=== PATIENT | male | born 2005 | race Caucasian/White ===

== ENCOUNTER 2025-08-08 19:34 | Observation (INO) | payer OTHER, SELFPAY ==
[2025-08-08 14:38] VITALS: BP 141/74
[2025-08-08 15:04] VITALS: BP 145/84
[2025-08-08 15:34] VITALS: BMI 29.1
--- NOTE | 2025-08-08 15:34 | ED.GENMED ---
History of Present Illness
<TRIPP Willson Jr. Last Filed: 08/08/25 20:07>
General
Chief Complaint: Post Operative Problem(s)
Source: patient and family
Exam Limitations: none
Time Seen by Provider: 08/08/25 15:07
Nursing documentation reviewed up to this point in time: agreed with
History of Present Illness
History of Present Illness:
20-year-old male past medical history of recurrent pilonidal cyst recent flap fistula surgery 3 days in [facility]. Initially was doing well has been taking Percocet for pain earlier today over the past 4 hours or so worsening abdominal
pain nausea and vomiting. Did have a bowel movement yesterday. Denies any chest pain shortness of breath or fevers.
Review of Systems
<TRIPP Willson Jr. Last Filed: 08/08/25 20:07>
Review of Systems
Allergies reviewed?: Yes
All Other Systems: ROS reviewed and negative except as documented in HPI and ROS
Phy Exam
<TRIPP Willson Jr. Last Filed: 08/08/25 20:07>
Physical Exam
Physical Exam:
GENERAL: Alert , in no apparent distress
EYE: pupils equal and reactive
NECK: Supple, no significant adenopathy.
ENT: o/p clr, mmm.
CARDIAC: Regular rate and rhythm .
LUNGS: Clear breath sounds bilaterally, no acute respiratory distress, no wheezes/rales/rhonchi
ABDOMEN: Nonperitoneal diffuse abdominal pain to palpation
NEUROLOGICAL: Alert and oriented, no focal neuro deficits
SKIN: Warm and dry, skin intact.
MUSCULOSKELETAL: No edema, well perfused.
PSYCH: Normal and appropriate interaction.
Course
<TRIPP Willson Jr. Last Filed: 08/08/25 20:07>
Orders/Labs/Results
Orders:
Orders
08/08/25 15:16
CT Abd/Pel (IV only)-DH only Urgent
Comment:
Reason For Exam: diffuse abd pain, flap fistula surgery 3 days ago
0.9% Sodium Chloride 1000 ml [Nss] 1,000 ml IV BOLUS
HYDROmorphone [Dilaudid] 0.5 mg IV NOW STA
Ondansetron Injectable [Zofran] 4 mg IV NOW STA
08/08/25 15:51
Complete Blood Count/With Diff Urgent
Comprehensive Metabolic Panel Urgent
Lactic Acid Urgent
Lipase Urgent
08/08/25 16:57
HYDROmorphone [Dilaudid] 0.5 mg IV NOW STA
08/08/25 17:01
Urinalysis Reflex To Culture Urgent
Date Specimen was Collected: 08/08/25
Time Specimen was Collected: 16:45
08/08/25 18:06
HYDROmorphone [Dilaudid] 0.5 mg IV NOW STA
Piperacillin/Tazo 4.5 Gram [Zosyn] 4.5 gram in 100 ml IV NOW
08/08/25 19:11
Admit/Transfer Patient As Directed
Co-Sign Provider:
Level of Care: Observation services
Assign to:: Medical/Surgical
Physician / Group: dr urban
Diagnosis: uncomplicated appendicitis
08/08/25 19:12
Code Status As Directed
Resuscitation Status: Full Code
PRN Pain Medication Management As Directed
May give lesser potent ordered pain med per pt: Yes
preference::
Protocol:: Medication orders for pain may be administered in a
manner that supports deferring to patient preference
when the pt is:
- Requesting an ordered lesser potent pain medication.
Least to most potent pain medications are defined
as: acetaminophen < NSAID < tramadol < opioids
(morphine, oxycodone, hydromorphone).
- Requesting a lesser dose of the same medication IF
ORDERED.
- Requesting a less intrusive route of administration
if both routes are prescribed by the provider (PO <
IV).
Abnormal Lab Results
08/08/25 08/08/25
15:51 17:01
WBC 12.9 H 10^3/uL
(4.8-10.8)
Absolute Neuts (auto) 11.7 H 10^3/uL
(1.4-6.5)
Absolute Lymphs (auto) 0.5 L 10^3/uL
(1.2-3.4)
Neutrophils % 90.9 H %
(42.2-75.2)
Lymphocytes % 3.7 L %
(20.5-51.1)
Glucose 125 H mg/dl
(70-99)
Total Bilirubin 1.5 H mg/dl
(0.2-1.3)
Albumin 5.1 H g/dl
(3.5-5.0)
Urine Ketones 3+ A
(Negative)
08/08/25 15:51
08/08/25 15:51
Vital Signs
Initial and Last Documented VS:
Initial Vital Signs
Temp Pulse Resp BP Pulse Ox
98.4 F 92 20 141/74 100
08/08/25 14:38 08/08/25 14:38 08/08/25 14:38 08/08/25 14:38 08/08/25 14:38
Last Documented Vital Signs
Temp Pulse Resp BP Pulse Ox
100.0 F 98 16 122/57 99
08/08/25 19:33 08/08/25 19:33 08/08/25 19:33 08/08/25 19:33 08/08/25 19:33
<Oli Lassiter DO - Last Filed: 08/08/25 17:38>
Orders/Labs/Results
Orders:
Orders
08/08/25 15:16
CT Abd/Pel (IV only)-[facility] only Urgent
Comment:
Reason For Exam: diffuse abd pain, flap fistula surgery 3 days ago
0.9% Sodium Chloride 1000 ml [Nss] 1,000 ml IV BOLUS
HYDROmorphone [Dilaudid] 0.5 mg IV NOW STA
Ondansetron Injectable [Zofran] 4 mg IV NOW STA
08/08/25 15:51
Complete Blood Count/With Diff Urgent
Comprehensive Metabolic Panel Urgent
Lactic Acid Urgent
Lipase Urgent
08/08/25 16:57
HYDROmorphone [Dilaudid] 0.5 mg IV NOW STA
08/08/25 17:01
Urinalysis Reflex To Culture Urgent
Date Specimen was Collected: 08/08/25
Time Specimen was Collected: 16:45
08/08/25 18:06
HYDROmorphone [Dilaudid] 0.5 mg IV NOW STA
Piperacillin/Tazo 4.5 Gram [Zosyn] 4.5 gram in 100 ml IV NOW
08/08/25 19:11
Admit/Transfer Patient As Directed
Co-Sign Provider:
Level of Care: Observation services
Assign to:: Medical/Surgical
Physician / Group: dr urban
Diagnosis: uncomplicated appendicitis
08/08/25 19:12
Code Status As Directed
Resuscitation Status: Full Code
PRN Pain Medication Management As Directed
May give lesser potent ordered pain med per pt: Yes
preference::
Protocol:: Medication orders for pain may be administered in a
manner that supports deferring to patient preference
when the pt is:
- Requesting an ordered lesser potent pain medication.
Least to most potent pain medications are defined
as: acetaminophen < NSAID < tramadol < opioids
(morphine, oxycodone, hydromorphone).
- Requesting a lesser dose of the same medication IF
ORDERED.
- Requesting a less intrusive route of administration
if both routes are prescribed by the provider (PO <
IV).
Abnormal Lab Results
08/08/25 08/08/25
15:51 17:01
WBC 12.9 H 10^3/uL
(4.8-10.8)
Absolute Neuts (auto) 11.7 H 10^3/uL
(1.4-6.5)
Absolute Lymphs (auto) 0.5 L 10^3/uL
(1.2-3.4)
Neutrophils % 90.9 H %
(42.2-75.2)
Lymphocytes % 3.7 L %
(20.5-51.1)
Glucose 125 H mg/dl
(70-99)
Total Bilirubin 1.5 H mg/dl
(0.2-1.3)
Albumin 5.1 H g/dl
(3.5-5.0)
Urine Ketones 3+ A
(Negative)
08/08/25 15:51
08/08/25 15:51
Vital Signs
Initial and Last Documented VS:
Initial Vital Signs
Temp Pulse Resp BP Pulse Ox
98.4 F 92 20 141/74 100
08/08/25 14:38 08/08/25 14:38 08/08/25 14:38 08/08/25 14:38 08/08/25 14:38
Last Documented Vital Signs
Temp Pulse Resp BP Pulse Ox
100.0 F 98 16 122/57 99
08/08/25 19:33 08/08/25 19:33 08/08/25 19:33 08/08/25 19:33 08/08/25 19:33
<Edchaitanya Ching Jr., PA-C - Last Filed: 08/08/25 20:07>
MDM/Problems Addressed
MDM/Problems Addressed:
20-year-old male presenting to the emergency department today 3 days after advancement flap fistula procedure due to recurrent pilonidal cyst. This was performed in [facility]. Denies any fevers but has had progressive nausea vomiting
diffuse abdominal pain over the past 4 hours or so. He did contact his surgeon told him to go to the ER.
CT scan was obtained that showed acute appendicitis. Case was discussed with general surgery who will except him to their service. Otherwise stable throughout ER stay.
<Paul Ching Jr., PA-C - Last Filed: 08/08/25 20:07>
*Pulse Oximetry
SaO2: 100
Oxygen Mode of Delivery: Room air
Patient hypoxic: no (98)
*Critical Care Note
Total Time (30-74mins, 75-104mins- exclusive of procedures): Not Applicable
ED Attending Note
<Paul Ching Jr., PA-C - Last Filed: 08/08/25 20:07>
-
Portions of this chart may have been created with voice recognition software.� Occasional wrong word or��sound alike� substitutions may have occurred due to the inherent limitations of voice recognition software.
<Oli Lassiter DO - Last Filed: 08/08/25 17:38>
ED Attending Note
Patient seen and examined by attending physician: Yes
I performed the substantive portion of visit, reviewed & personally made and approve the management plan that is documented in note by myself or DAQUAN.: Yes
I performed a history and physical exam of patient and discussed management with resident, I reviewed resident's note and agree with documented findings and plan of care.: Yes
ED Attending Note:
20-year-old male presents to the ER for evaluation of abdominal pain. Patient gestures to his mid abdomen as area of greatest discomfort. He is recently status post a procedure for treatment of fistula in a different hospital 3 days ago. Vital
signs reviewed, patient is awake, alert, appears uncomfortable but in no acute distress, abdomen is soft with localized pain on palpation at McBurney's, GCS is 15. I discussed with patient and failed member present at bedside CT concerning for
acute appendicitis and treatment of same. Physician tutoring assistant was able to review patient presentation with the surgical team for admission and definitive treatment. Antibiotics ordered.
Discharge Plan
Departure
Patient Disposition: Admit
Date of Disposition: 08/08/25
Time of Disposition: 20:06
Admit to: Med/Surg
Admit to doctor: Sami
Presentation/result/management discussed w/ accepting MD/DO: Surgery
Patient with high blood pressure during this ER visit?: No
Condition: Good
Covid-19: Not Applicable
Discharge Problem:
Acute appendicitis
Interventions
Interventions:
*General Assessment Last Done: 08/08/25 14:38
*Neglect/Abuse Screening Last Done: 08/08/25 14:38
*ED COVID-19 Vaccine History Last Done: 08/08/25 15:35
*ED Influenza Vaccine History Last Done: 08/08/25 15:35
[facility] Fall Risk Assessment Tool Last Done: 08/08/25 15:34
*Risk Screen - Suicide (C-SSRS) Last Done: 08/08/25 14:45
[2025-08-08] MEDS: DILAUDID 0.5 MG IV ×3 (15:44→19:29)
[2025-08-08] MEDS: NSS 1000 IV ×2 (15:45→21:28)
[2025-08-08] MEDS: ZOFRAN 4 MG IV ×2 (15:45→19:39)
[2025-08-08 16:01] LABS: Hematocrit 44.2 % (39.0-52.0); Hemoglobin 15.8 g/dL (13.0-18.0); Mean Corp Hgb Conc. 35.7 g/dL (33.0-37.0); Mean Corpuscular Volume 81.4 fL (80.0-94.0); Nucleated Red Blood Cells % 0 % (-); Platelet Count 165 10^3/uL (130-400); Red Cell Dist. Width 12.8 % (11.5-14.5)
[2025-08-08 16:23] LABS: ALT (SGPT) 26 U/L (0-50); AST (SGOT) 30 U/L (17-59); Albumin 5.1 g/dl (3.5-5.0); Alkaline Phosphatase 62 U/L (38-126); Blood Urea Nitrogen 14 mg/dl (9-20); Calcium 10.1 mg/dl (8.4-10.2); Carbon Dioxide 23 mmol/L (22-30); Chloride 101 mmol/L (98-107); Estimated Creatinine Clearance 125 ml/min; Glucose 125 mg/dl (70-99); Lipase 73 U/L (23-300); Potassium 4.1 mmol/L (3.5-5.1); Sodium 138 mmol/L (135-145); Total Protein 8.1 g/dl (6.3-8.2); eGFR > 60.00
[2025-08-08 17:17] LABS: Urine Character Clear (Clear)
--- NOTE | 2025-08-08 19:15 | EDRN ---
Report received, introduced myself to patient and medicated for pain, hospitalist was just in seeing and working on admission
[2025-08-08] MEDS: ZOSYN 100 IV (19:29)
[2025-08-08 19:33] VITALS: BP 122/57
[2025-08-08 20:45] VITALS: BP 108/62
[2025-08-08 21:14] VITALS: BMI 29.4
--- NOTE | 2025-08-08 21:32 | HPS.HSE ---
Addendum entered and electronically signed by Asim Alegria MD 08/09/25 08:29:
Patient seen and examined independently of admitting SOFTWARE DEVELOPMENT COORDINATOR. Agree with documented history and physical with details noted here.
HPI: 20-year-old male who recently underwent a anorectal advancement flap for perianal fistula 3 days ago. He was recovering expectedly until his began developing abdominal pain yesterday with bloating and distention. He had mild nausea and
subsequent vomiting. Abdominal pain increased in severity and has begun localizing to the right lower quadrant.
Persistent pain and tenderness this a.m.
Past medical history only notable for ADHD and perianal fistula (not pilonidal as mentioned SOFTWARE DEVELOPMENT COORDINATOR HPI)
No past abdominal surgical history
AFVSS; Tmax 100 yesterday evening
NAD AAO x 3 but acutely ill-appearing
ABD: Softly distended with localizing tenderness to right lower quadrant with voluntary guarding
CT imaging personally reviewed as well as radiologist report. Dilated appendix with thickening and surrounding inflammatory stranding. Multiple appendicoliths. Trace free fluid. No organizing abscess. No phlegmon.
Assessment: 20-year-old male with acute appendicitis.
Reviewed with patient and his mother at bedside history, examination and CT imaging consistent with acute appendicitis. Discussed both operative and nonoperative management options and associated risks/benefits of approaches. Patient is in agreement
to proceed with appendectomy which was recommended in the setting of obstructed fecalith on CT imaging.
Laparoscopic appendectomy reviewed in detail with the patient. Discussed operative technique utilizing diagrams or drawings, alternative management options, benefits and potential risks such as but not limited to bleeding, infectious or wound
healing complications, iatrogenic injury to surrounding viscera. Discussed the typical postoperative recovery pending operative findings.
Any of the patient's concerns or questions were fully addressed and informed consent was obtained.
Plan: OR for laparoscopic appendectomy.
Empiric antibiotic coverage with Zosyn.
Nothing by mouth, IV fluid hydration and supportive care awaiting operative room availability.
SCDs for DVT prophylaxis
Original Note:
Family Physician
-
Family Physician: PHYSICIAN PRIVATE
Chief Complaint
-
abd pain rlq
History of Present Illness
20-year-old male hx of ADHD, freq pilonidal cysts presents to the ER for evaluation of abdominal pain starting this morning around 11 am. Patient says pain started in his mid abdomen now with radiation into RLQ. PT has vomited many times today.
Denies fever but has had chills. Feels bloated. Last BM yesterday. He is recently status post a procedure for treatment of fistula (due to his pilonidal cyst) in a different hospital 3 days ago- has has no issues with this. Vital signs reviewed,
patient is awake, alert, appears uncomfortable but in no acute distress, abdomen is soft with localized pain on palpation at McBurney's. Pain better with dilaudid given in ED but still 6/10.
WBC 12.[address] abd: The appendix is dilated and measures 1.5 cm in diameter with wall thickening and periappendiceal inflammatory fat stranding, consistent with acute appendicitis. 1.2 cm appendicolith in the base of the appendix. Smaller appendicolith in the
distal tip of the appendix. No extraluminal free air or fluid collection. Trace ascites in the right lateral pelvis adjacent to the inflamed appendix. No bowel obstruction.
Medical History
Past Medical History
Past Medical History: Reports Psychiatric (ADHD takes concertta prn) and Other (many reoccurrences of pilonidal cysts)
Past Surgical History: Reports Other (wisdom teeth removal x 5, per mom 8 surgeries for pilonidal cysts- last one 3 days ago )
Social History
Tobacco: Non-smoker
Alcohol: None
Drug: None
Personal: Single
Living: With Family
Employment: Not Employed
Family History
Family History: Not pertinent
Allergies / Home Medications
Allergies reflects when Allergies were last updated in [facility].
Home Medications with original date entered in [facility]
Allergy/Medication List:
Allergies
Allergy/AdvReac Type Severity Reaction Status Date / Time
No Known Allergies Allergy Unverified 08/08/25 15:36
Home Medications
methylphenidate HCl 18 mg tablet,extended release 24 hr 18 mg PO DAILY Neurological Condition 08/08/25
oxycodone-acetaminophen 5 mg-325 mg tablet 1 tab PO Q4HPRN PRN MODERATE - SEVERE PAIN 08/08/25
Review of Systems
-
History Source: Patient and Family (mom and grandmother at bedside)
A 12 point ROS was completed and negative except as noted: Yes
Constitutional: Reports Chills
EENT: Reports No Symptoms
Respiratory: Reports No Symptoms
Cardiac: Reports No Symptoms
Abdomen/GI: Reports Abdominal Pain (at first pain was diffuse now more localized to RLQ with bloating), Nausea, Vomiting and Anorexia
: Reports No Symptoms
Musculoskeletal: Reports No Symptoms
Neurological: Reports No Symptoms
Endocrine: Reports No Symptoms
Hematologic/Lymphatic: Reports No Symptoms
Psych: Reports No Symptoms
Physical Exam
Vital Signs
Vital Signs
Temp Pulse Resp BP Pulse Ox
98.6 F 103 16 108/62 96
08/08/25 20:45 08/08/25 20:45 08/08/25 20:45 08/08/25 20:45 08/08/25 20:45
Physical Exam
General: Well Developed, Well Nourished and Pain (01/27 but better with dilaudid)
HEENT: NormoCephalic, Anicteric, Moist mucous membranes and PERRLA
Respiratory: Clear and Non Labored Respirations
Cardiac: S1/S2 and Regular Rhythm
Breast: Deferred by me
GI: Soft, Normal Bowel Sounds and Tender (tenderness with palpation RLQ, mildly distended); No Non Tender
Rectal: Deferred by Provider (did not visualize wound to sacrum due to family members present. )
Genito-urinary: Deferred by me
Musculoskeletal: Clubbing and No Cyanosis
Skin: Warm and Dry
Neuro: Awake, Alert, Oriented, AO x 3 and No Motor Deficits
Hematologic/Lymphatic: No Lymphadenopathy
Laboratory Results
-
08/08/25 15:51
08/08/25 15:51
Laboratory Results
Lactic Acid 1.7 mmol/L (0.7-2.0) 08/08/25 15:51
Total Bilirubin 1.5 mg/dl (0.2-1.3) H 08/08/25 15:51
AST 30 U/L (17-59) 08/08/25 15:51
ALT 26 U/L (0-50) 08/08/25 15:51
Alkaline Phosphatase 62 U/L (38-126) 08/08/25 15:51
Lipase 73 U/L (23-300) 08/08/25 15:51
Data Reviewed
-
CT Scan: Report Reviewed by me and Discussed with Physician
Lab Data: Labs Reviewed by me
Impression/Plan
-
IMPRESSION:
20yr old male presents to ED with abd pain starting this morning around [address] consistent with acute appendicitis w/o perforation.
PLAN:
Admit to service of Dr Alegria
med surg obs
#acute appendicitis
-NPO x meds- can have sips and chips until midnight
-pain control: tylenol, toradol, dilaudid prn
-zofran prn
-cont zosyn q6h
-IVF: NSS @100
-CT abd:The appendix is dilated and measures 1.5 cm in diameter with wall thickening and periappendiceal inflammatory fat stranding, consistent with acute appendicitis. 1.2 cm appendicolith in the base of the appendix. Smaller appendicolith in the
distal tip of the appendix. No extraluminal free air or fluid collection. Trace ascites in the right lateral pelvis adjacent to the inflamed appendix. No bowel obstruction.
-WBC 12.9--> repeat in am
-lactic normal
#ADHD
-takes concerta prn
-can resume at dc
DVT prophylaxis: SCD for now
Full code
Answered questions to best of my ability to pt, mom and grandmother
[2025-08-08] MEDS: TORADOL 10 MG IV (21:37)
[2025-08-08 23:00] VITALS: BP 105/59
[2025-08-09] VITALS (10 sets, daily range): BP systolic 94–128; BP diastolic 42–56
[2025-08-09] MEDS: ZOSYN 50 IV ×3 (00:43→11:46)
[2025-08-09] MEDS: DILAUDID 0.5 MG IV (01:08)
[2025-08-09] MEDS: TORADOL 10 MG IV (04:23)
[2025-08-09 06:53] LABS: Hematocrit 41.6 % (39.0-52.0); Hemoglobin 14.2 g/dL (13.0-18.0); Mean Corp Hgb Conc. 34.1 g/dL (33.0-37.0); Mean Corpuscular Volume 83.0 fL (80.0-94.0); Nucleated Red Blood Cells % 0 % (-); Platelet Count 163 10^3/uL (130-400); Red Cell Dist. Width 13.2 % (11.5-14.5)
[2025-08-09 07:01] LABS: ALT (SGPT) 19 U/L (0-50); AST (SGOT) 23 U/L (17-59); Albumin 4.2 g/dl (3.5-5.0); Alkaline Phosphatase 50 U/L (38-126); Blood Urea Nitrogen 15 mg/dl (9-20); Calcium 8.8 mg/dl (8.4-10.2); Carbon Dioxide 26 mmol/L (22-30); Chloride 104 mmol/L (98-107); Estimated Creatinine Clearance 95 ml/min; Glucose 96 mg/dl (70-99); Potassium 3.6 mmol/L (3.5-5.1); Sodium 137 mmol/L (135-145); Total Protein 6.9 g/dl (6.3-8.2); eGFR > 60.00
--- NOTE | 2025-08-09 08:58 | W.SUR.PREOP ---
Pre-Operative Surgical Note
-
I have examined this patient prior to the performance of the scheduled procedure.
The patient's condition is unchanged from the time of the current History and
Physical and the patient is able to undergo the scheduled procedure.
--- NOTE | 2025-08-09 10:28 | W.IMMPOSTOP ---
Addendum entered and electronically signed by Asim Alegria MD 08/09/25 10:35:
#[id number]
Original Note:
Surgical Immed Post Op Note
-
Primary Surgeon: Asim Alegria MD
Assisting Surgeon: None
Pre-op Diagnosis: Acute appendicitis
Post-op Diagnosis: Acute appendicitis
Procedure Performed: Laparoscopic appendectomy
Anesthesia Type: GETA +0.25% Marcaine with epinephrine
Specimen / Cultures: Appendix/none
Estimated Blood Loss: 6 mL
Complications: None immediate
Operative Findings: Acutely inflamed appendix with exudative inflammatory adhesions. Some purulent free fluid in the pelvis. Appendectomy completed without disruption of the appendix. No abscess, no perforation. Purulent free fluid suctioned
clear and then locally irrigated.
Plan: Routine postoperative care advancing diet as tolerated
Okay for discharge when pain controlled, tolerating p.o. and ambulating
Would cover a total of 5 days with antibiotics postoperatively -> Zosyn to Augmentin on discharge
[2025-08-09] MEDS: NSS 1000 IV (10:54)
--- NOTE | 2025-08-09 11:55 | PTCARENOTE ---
Pt returned from PACU in a bed. 4 lap sites PLUGGER WORKER with glue. Ice pack on pt's abdomen. Knee high scds on pt. Pt DTV. Bed locked and in lowest position. Care ongoing.
[2025-08-09] MEDS: DILAUDID 0.25 MG IV (13:18)
--- NOTE | 2025-08-09 15:03 | CM ---
Met with patient and his parents at the bedside
Observation notice explained; form signed @ 1456
Pharmacy verified: [facility] @ [address] [facility]
Family Physician: Dinah Fischer MD; Address: [address] [place] [id number];
On break from college; lives w/ parent; multilevel home; his bath on 2nd floor has stall shower
PLOF: independent with ambulation, stairs and ADLs; no DME
NO SNF or Home Health utilization history
Parents will transport home
Plan: Discharge to home w/ parents when stable; no needs
--- NOTE | 2025-08-09 16:52 | W.DS.TRANS ---
DC Summary - Editor Department
-
Discharge Instructions:
Discharge Diagnosis/Procedures Acute appendicitis. Laparoscopic appendectomy
Diet As tolerated,Regular
Additional Diets Smaller meals after surgery as abdominal
bloating and distention may be common for the
first few days
Activity No strenuous activity
Driving Restrictions No driving for 24 hours
Bathing Restrictions OK to Shower
Wound Care Glue at surgical sites typically peels off in 2
to 3 weeks
Instructions:
Stand-Alone Forms:
Changes to Home Medications: No
Discharge Medications:
DC Medications w/original date entered in [facility]
methylphenidate HCl 18 mg tablet,extended release 24 hr 18 mg PO DAILY Neurological Condition 08/08/25
oxycodone-acetaminophen 5 mg-325 mg tablet 1 tab PO Q4HPRN PRN MODERATE - SEVERE PAIN 08/08/25
amoxicillin 875 mg-potassium clavulanate 125 mg tablet 1 tab PO Q12 antibiotic #9 tabs 08/09/25
ibuprofen 200 mg tablet 400 mg (2 x 200 mg) PO Q6HPRN PRN moderate pain #1 tab 08/09/25
polyethylene glycol 3350 17 gram/dose oral powder (Miralax) 4 g PO DAILY PRN Constipation #119 grams 08/09/25
Home Medication Changes
Pending Results: No
== END 2025-08-09 17:32 | disposition home or self-care (01) ==
LOC: 2 SOUTH 19:34
PROVIDERS: Nurse Practitioner Family; Physician Assistant; ADMITTING PHYSICIAN Surgery; EMERGENCY PHYSICIAN Emergency Medicine
DX: D3A.8 Other benign neuroendocrine tumors (principal); K35.80 Unspecified acute appendicitis; K38.1 Appendicular concretions; K66.0 Peritoneal adhesions (postprocedural) (postinfection); F90.9 Attention-deficit hyperactivity disorder, unspecified type
CPT/HCPCS: 44970; 74177; 80053; 81003; 83605; 83690; 85025; 88304; 88341; 88342; 96361; 96365; 96375; 96376; 99284; G0378; Q9967